=== PATIENT | female | born 1965 | race Caucasian/White ===

== ENCOUNTER 2017-07-20 13:11 | Emergency (ER) | payer OTHER ==
[~2017-07-20] VITALS: Ht 172.7 cm; Wt 74.8 kg
[2017-07-20 13:20] VITALS: BP 154/109
--- NOTE | 2017-07-20 13:59 | NUR ---
PT TAKEN TO BED 10.
--- NOTE | 2017-07-20 14:00 | NUR ---
52/F C/O NUMBNESS TO LEFTFACIAL NUMBNESS SINCE MONDAY; PT WAS SEEN MONDAY BY DR. 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 DENIES N/V/D; SKIN IS PINK/WARM/DRY; AAOX4 WITH EVEN AND STEADY GAIT; LUNGS CLEAR BL; PATIENT STATES PAIN OF 0/10 AT THIS TIME;PATIENT POSITIONED FOR COMFORT; HOB ELEVATED; BEDRAILS UP X2; BED DOWN. ER MD MADE AWARE OF PT STATUS.
--- NOTE | 2017-07-20 15:20 | NUR ---
BP178/97, P59.PT STATED TOOK METOPROLOL 100 MG THIS AM . PT DENIES HEADACHE OR DIZINESS BUT C/O L FACIAL NUMBNESS AT THIS TIME. NOTIFIED DR ANDREA.
[2017-07-20 15:50] VITALS: BP 178/97
--- NOTE | 2017-07-20 15:50 | NUR ---
Note undone in EDM - 07/20/17 at 1552 by [facility] Patient discharged with BP 178/97, DENIES HEADACHE AT THIS TIME. Written and verbal after care instructions given and explained. Patient alert, oriented and verbalized understanding of instructions. Ambulatory with steady gait. All questions addressed prior to discharge. ID band removed. Patient advised to follow up with PMD. Rx of JEROMY given. Patient educated on indication of medication including possible reaction and side effects. Opportunity to ask questions provided and answered.
--- NOTE | 2017-07-20 15:50 | NUR ---
Patient discharged with BP 178/97, DENIES HEADACHE AT THIS TIME; MD MADE AWARE. Written and verbal after care instructions given and explained. Patient alert, oriented and verbalized understanding of instructions. Ambulatory with steady gait. All questions addressed prior to discharge. ID band removed. Patient advised to follow up with PMD. Rx of MORTIN given. Patient educated on indication of medication including possible reaction and side effects. Opportunity to ask questions provided and answered.
== END 2017-07-20 15:50 | disposition home or self-care (01) ==
LOC: MED 13:11
DX: R20.0 Anesthesia of skin (principal); I10 Essential (primary) hypertension; F17.200 Nicotine dependence, unspecified, uncomplicated; Z86.73 Personal history of transient ischemic attack (TIA), and cerebral infarction without residual deficits
CPT/HCPCS: 81002; 81025; 99283